=== PATIENT | female | born 1980 | race Caucasian/White ===

== ENCOUNTER 2018-01-03 08:45 | Emergency (ER) | payer BC ==
[~2018-01-03] VITALS: Ht 170.2 cm; Wt 90.7 kg
[2018-01-03] MEDS ORDERED: Lidocaine 1% Plain 30 ml INJ ONE ×2 (09:03→09:15)
--- NOTE | 2018-01-03 09:05 | Emergency Room Report ---
History of Present Illness General Chief Complaint: Laceration Source: Patient Present Illness HPI Patient was finishing up her workout just prior to arrival When essentially a weight dropped onto her right hand Pain was 8 out of 10 There was laceration with bleeding from the area bleeding has been controlled with some pressure Pain is 8 out of 10 Denies any wrist injury denies any elbow injury Denies any other complaints Allergies: Coded Allergies: No Known Allergies (Unverified , 01/03/18) Patient History Past Medical History: see triage record Pertinent Family History: none Last Menstrual Period: 12/03/17 Reviewed Nursing Documentation: PMH: Agreed; PSxH: Agreed Nursing Documentation-PMH Past Medical History: No Stated History Review of Systems All Other Systems: negative except mentioned in HPI Physical Exam Vital Signs Date Time Temp Pulse Resp B/P (MAP) Pulse Ox O2 Delivery O2 Flow Rate FiO2 01/03/18 08:48 97.8 81 12 114/78 97 Room Air 97.9 Sp02 EP Interpretation: reviewed, normal General Appearance: well appearing, no apparent distress Head: normocephalic, atraumatic Eyes: bilateral eye PERRL, bilateral eye EOMI ENT: normal pharynx, no angioedema Neck: supple Respiratory: lungs clear Cardiovascular #1: regular rate, rhythm, no edema Musculoskeletal: swelling Neurologic: alert, oriented x3, responsive Skin: other - Laceration on the palmar aspect of the right hand third digit involves the MIP region patient able to flex the finger upwards and extend fully. Lymphatic: no adenopathy Procedures Splinting Splinting : Consent: Verbal Location: Right middle finger Pre-Made Type: metal Splint: Finger splint Pre-Proc Neuro Vasc Exam: normal Post-Proc Neuro Vasc Exam: normal Patient Tolerated: Well Complications: None Laceration/Wound Repair Laceration/Wound Repair : Consent: Verbal Wound Location: upper extremity Wound's Depth, Shape: superficial Wound Length (cm): 1 Wound Explored: clean Irrigated w/ Saline (ccs): 500 Betadine Prep?: Yes Anesthesia: 1% Lidocaine Volume Anesthetic (ccs): 2 Wound Debrided: moderate Wound Repaired With: sutures Suture Size/Type: 5:0 Number of Sutures: 3 Layer Closure?: No Progress High-pressure washout was performed, with saline, also Betadine and peroxide washout Medical Decision Making Diagnostic Impression: Primary Impression: Laceration Additional Impression: Open fracture of finger, distal phalanx ER Course Patient's imaging study does reveal acute fracture Therefore after digital block Patient had copious amounts of high pressure washout The laceration itself appears to be somewhat superficial the wound is approximated as noted above Patient is consulted with hand specialty And will have follow-up on Sunday next week Other X-Ray Diagnostic Results Other X-Ray Diagnostic Results : X-Ray ordered: Right hand # of Views/Limited Vs Complete: 3 View Indication: Pain EP Interpretation: Yes Interpretation: no dislocation, no soft tissue swelling, other - MIP fx Impression: Other - MIP fx Electronically Signed by: Arielle Yates DO Last Vital Signs Date Time Temp Pulse Resp B/P (MAP) Pulse Ox O2 Delivery O2 Flow Rate FiO2 01/03/18 08:48 97.8 81 12 114/78 97 Room Air 97.9 Status: improved Disposition: HOME, SELF-CARE Condition: Stable Scripts Ciprofloxacin Hcl* (CIPROFLOXACIN HCL*) 500 Mg Tablet 500 MG ORAL Q12H, #14 TAB 0 Refills Prov: Arielle Yates DO 01/03/18 Ibuprofen* (MOTRIN*) 600 Mg Tablet 600 MG ORAL Q8H PRN for For Pain, #20 TAB 0 Refills Prov: Arielle Yates DO 01/03/18 Additional Instructions: follow-up has specialty on Sunday. Return to the ER with any concerns prior to that Arielle Yates DO Jan 03, 2018 09:05
[2018-01-03 09:09] VITALS: BP 114/78
[2018-01-03] MEDS ORDERED: Ciprofloxacin 500mg tab ORAL ONE (10:00)
[2018-01-03] MEDS ORDERED: IBUPROFEN600 MG ORAL (10:09)
[2018-01-03] MEDS ORDERED: CIPROFLOXACIN500 M2 ORAL (10:09)
[2018-01-03] MEDS ORDERED: Bacitracin Oint UD TOPIC ONE (10:15)
[2018-01-03 10:16] VITALS: BP 110/72
--- NOTE | 2018-01-03 16:12 | Diagnostic Imaging Report ---
Indication: Pain, trauma, middle finger Technique: 3 views right hand Comparison: None Findings: There is an oblique fracture on the lateral aspect of the head of the third middle phalanx, extending to the articular surface. No other acute fractures. No dislocations. There are mild degenerative changes of the fifth distal interphalangeal joint. The remaining joint spaces are preserved. Impression: Positive for third middle phalangeal fracture. This agrees with the interpretation reported in the electronic medical record by the emergency room physician
== END 2018-01-03 10:18 | disposition home or self-care (01) ==
LOC: EMR 09:20
DX: S61.411A Laceration without foreign body of right hand, initial encounter (principal); X58.XXXA Exposure to other specified factors, initial encounter
CPT/HCPCS: 12002; 73130; 99284; J2001